=== PATIENT | female | born 1970 | race Caucasian/White ===

== ENCOUNTER → 2016-09-11 | Outpatient (CLI) | payer BC ==
[~2016-09-11] MED LIST: ALBUTEROL17 GM IN; BUMEX2 MG PO; COZAAR100 MG PO; MULTI VITAMIN1 EACH PO; OMEPRAZOLE40 M1 PO; PRAVASTATIN SOD20 MG PO
--- NOTE | ~2016-09-11 | US6 ---
[facility] A Service of [facility] & [facility] RADIOLOGY TEXT RESULTS PATIENT: DONALD WALLACE LOCATION: [facility] : [id number] UNIT #: [id number] AGE: [address]: Angelica Sanz MD SEX: F ORDER DR: [id number] [facility] [address] [place], [place] [address] [id number] O MR#: [id number] Acc #: [id number] NAME: DONALD WALLACE : 1970 SEX: F STUDY DATE/TIME: 09/11/2016 8:55 UNIT: [facility] ROOM: STUDY DESCRIPTION: US Abdominal Limited Attending Physician: Angelica Sanz M.D. Referring Physician: Angelica Sanz M.D. Ordering Physician: Angelica Sanz M.D. Primary Care Physician: Angelica Sanz M.D. MEDICAL IMAGING REPORT This report is preliminary unless electronic signature is present EXAM Right upper quadrant ultrasound 09/11/2016 INDICATIONS Abnormal elevated liver enzymes. Hyperlipidemia. FINDINGS Sonographic evaluation performed of the right upper quadrant in multiple planes. No comparison. Pancreas is normal. The liver is echogenic compatible with fatty infiltration. No focal liver mass. The right kidney is morphologically normal and nonobstructed. Gallstone is present within an otherwise normal-appearing gallbladder. Common duct is borderline in size at 5-6 mm internal diameter. No stones are seen within the duct. IMPRESSION 1. Fatty infiltration of the liver. 2. Single gallstone within an otherwise normal-appearing gallbladder. 3. Borderline to mildly dilated common hepatic duct at 5-6 mm internal diameter. No stones seen within this portion of the duct. Dictated by... Omar Sharp Jr., M.D. THIS IS AN ELECTRONICALLY VERIFIED REPORT Omar Sharp Jr., M.D. at 09/12/2016 5:53 AM DORCAS/rajan TD: 09/11/2016 18:13 JOB #: [id number] MEDICAL IMAGING REPORT Page 1 of 1 COPY
== END | disposition home or self-care (01) ==
LOC: CGUS 08:28
DX: R79.89 Other specified abnormal findings of blood chemistry (principal); K76.0 Fatty (change of) liver, not elsewhere classified; K80.20 Calculus of gallbladder without cholecystitis without obstruction; K83.8 Other specified diseases of biliary tract
CPT/HCPCS: 76705